=== PATIENT | male | born 1930 | race Caucasian/White ===

== ENCOUNTER 2016-08-24 08:25 | Day surgery (SDC) | payer MEDICARE, BC ==
[~2016-08-24] VITALS: Ht 180.3 cm; Wt 71.4 kg
[2016-10-17] MEDS ORDERED: THERA1 EACH PO (17:36)
[2016-10-17] MEDS ORDERED: PRESERVISION A1 EAC1 PO (17:37)
[2016-10-17] MEDS ORDERED: PEPCID DPS20 MG PO (17:37)
[2016-10-17] MEDS ORDERED: AUGMENTIN 875-1 EACH PO (17:37)
== END 2016-08-24 12:29 | disposition home or self-care (01) ==
LOC: RAD.S 08:25 → EDSTATUS 10:00 → RAD.S 10:00
DX: M48.54XA Collapsed vertebra, not elsewhere classified, thoracic region, initial encounter for fracture (principal); Z90.49 Acquired absence of other specified parts of digestive tract; Z98.49 Cataract extraction status, unspecified eye; Z79.899 Other long term (current) drug therapy; Z79.891 Long term (current) use of opiate analgesic